=== PATIENT | female | born 1960 | race Caucasian/White ===

== ENCOUNTER 2017-06-19 02:43 | Inpatient (IN) | payer OTHER ==
[~2017-06-19] VITALS: Ht 160 cm; Wt 93.4 kg
[2017-06-19 02:48] VITALS: Ht 160 cm; Wt 93.4 kg
[2017-06-19 03:47] LABS: PLATELET COUNT 307 x10^3mcL (130-400); RED CELL DISTRIBUTION WIDTH 12.5 % (11.5-14.5)
[2017-06-19 03:49] LABS: BASOPHIL % 2.6 % (0-2)
[2017-06-19 03:58] LABS: CALCIUM 8.7 mg/dL (8.5-10.1); CARBON DIOXIDE 25.7 mmol/L (21-32); CHLORIDE SERUM 100 mmol/L (98-107); CREATININE SERUM 0.8 mg/dL (0.6-1.0); GFR1 > 60 mL/min; GLUCOSE SERUM 321 mg/dL (74-106); POTASSIUM SERUM 3.7 mmol/L (3.5-5.1); SODIUM SERUM 137 mmol/L (136-145)
[2017-06-19 04:03] LABS: ALBUMIN 3.8 g/dL (3.4-5.0); ALKALINE PHOSPHATASE 147 U/L (46-116); ALT/SGPT 40 U/L (14-59); BILIRUBIN TOTAL 0.25 mg/dL (0.20-1.00); TOTAL PROTEIN, SERUM 7.7 g/dL (6.4-8.2)
[2017-06-19 04:25] LABS: AST/SGOT 31 U/L (15-37)
[2017-06-19 05:10] LABS: microscopic required? YES; urine erythrocyte NEGATIVE (NEGATIVE)
[2017-06-19] MEDS ORDERED: BENAZEPRIL HYDR20 M1 PO (05:14)
[2017-06-19] MEDS ORDERED: SIMVASTATIN20 M1 PO (05:14)
[2017-06-19] MEDS ORDERED: GLUCOTROL5 MG PO (05:14)
[2017-06-19] MEDS ORDERED: ASPIR 8181 MG PO (05:15)
[2017-06-19 05:19] LABS: AMPHETAMINE QUAL UR NONE DETECTED (NEG <=1000)
[2017-06-19 06:05] LABS: PHOSPHOROUS 2.2 mg/dL (2.5-4.9)
[2017-06-19 06:06] LABS: CHOLESTEROL/HDL RATIO 6.4
[2017-06-19 06:14] VITALS: BP 130/68
[2017-06-19 06:15] LABS: FREE T4 1.09 ng/dL (0.76-1.46); FREE THYROXINE INDEX 3.1 ug/dL (1.4-4.5)
[2017-06-19 09:50] VITALS: BP 119/66
[2017-06-19 12:45] VITALS: BP 131/60
[2017-06-19 17:20] VITALS: BP 110/61
[2017-06-19 19:50] VITALS: BP 123/66
[2017-06-20 04:15] VITALS: BP 117/61
[2017-06-20] MEDS ORDERED: METFORMIN HCL1000 MG PO (05:13)
[2017-06-20 07:17] LABS: BASOPHIL % 0.3 % (0-2); PLATELET COUNT 244 x10^3mcL (130-400); RED CELL DISTRIBUTION WIDTH 13.5 % (11.5-14.5)
[2017-06-20 08:08] LABS: CALCIUM 8.2 mg/dL (8.5-10.1); CARBON DIOXIDE 23.8 mmol/L (21-32); CHLORIDE SERUM 107 mmol/L (98-107); CREATININE SERUM 0.6 mg/dL (0.6-1.0); GFR1 > 60 mL/min; GLUCOSE SERUM 179 mg/dL (74-106); PHOSPHOROUS 2.5 mg/dL (2.5-4.9); POTASSIUM SERUM 3.9 mmol/L (3.5-5.1); SODIUM SERUM 141 mmol/L (136-145)
[2017-06-20] MEDS ORDERED: CLONAZEPAM0.5 MG PO (10:46)
[2017-06-20 13:01] VITALS: BP 131/61
[2017-06-20 14:09] VITALS: BP 133/65
== END 2017-06-20 14:56 | disposition home or self-care (01) | DRG 48 ==
LOC: ED 02:43 → DU 04:44
PROVIDERS: Emergency Medicine; Family Medicine
DX: G90.8 Other disorders of autonomic nervous system (principal); N17.0 Acute kidney failure with tubular necrosis; G93.41 Metabolic encephalopathy; E11.65 Type 2 diabetes mellitus with hyperglycemia; R80.9 Proteinuria, unspecified; F12.10 Cannabis abuse, uncomplicated; E83.39 Other disorders of phosphorus metabolism; Z79.84 Long term (current) use of oral hypoglycemic drugs; F43.0 Acute stress reaction; M94.0 Chondrocostal junction syndrome [Tietze]; E78.00 Pure hypercholesterolemia, unspecified; F41.1 Generalized anxiety disorder
CPT/HCPCS: 36600; 82962; 83880; 84439; 87804; J1815; J7030; J8597; Q0092